=== PATIENT | female | born 1960 | race African-American/Black ===

== ENCOUNTER 2016-11-26 02:19 | Emergency (ER) | payer OTHER ==
[~2016-11-26] VITALS: Ht 165.1 cm; Wt 59.0 kg
[2016-11-26 02:34] VITALS: BP 131/64
--- NOTE | 2016-11-26 02:45 | CT SCAN REPORT ---
EXAMINATION: CT HEAD WITHOUT CONTRAST CLINICAL INFORMATION: Question stroke. Pressure behind the right eye. COMPARISON: None available. TECHNIQUE: Contiguous axial imaging was performed from the skull base to vertex without intravenous administration of contrast. FINDINGS: There is a dense right MCA sign in keeping with intra-arterial thrombus. There is no intracranial hemorrhage, hydrocephalus, extra-axial surface collection, midline shift, or other herniation pattern. Kamara to white matter differentiation is diffusely maintained without evidence of an evolved acute territorial infarct. The basilar cisterns are preserved. No significant soft tissue abnormality. No acute osseous abnormality. The paranasal sinuses and the mastoid air cells are well-aerated. IMPRESSION: There is a dense right MCA sign in keeping with the presence of right MCA intra-arterial thrombus. No acute infarct is identified at this time. No hemorrhage. Stroke protocol was discussed with Dr. Adams at 2:39 AM on November 26, 2016.
[2016-11-26 02:47] LABS: ABSOLUTE BASOPHIL COUNT 0 /CUMM (0.0-0.2); ABSOLUTE EOSINOPHIL COUNT 0.2 /CUMM (0.0-0.7); ABSOLUTE GRANULOCYTE CT 2.3 /CUMM (1.4-6.5); ABSOLUTE LYMPH COUNT 2.7 /CUMM (1.2-3.4); ABSOLUTE MONOCYTE COUNT 0.8 /CUMM (0.10-0.60); BASOPHIL % 0 % (0.0-2.0); EOSINOPHIL % 3.8 % (0-5); GRANULOCYTE % 38.7 % (42.2-75.2); HEMATOCRIT 38.5 % (37-47); MEAN CORPUSCULAR HGB CONC 32.6 G/DL (33.0-37.0); MEAN CORPUSCULAR VOLUME 88.8 FL (81.0-99.0); MEAN PLATELET VOLUME 7.9 FL (7.4-10.4); PLATELET COUNT 244 /CUMM (130-400); RED BLOOD CELL CT 4.33 /CUMM (4.20-5.40); WHITE BLOOD CELL COUNT 6.1 /CUMM (4.8-10.8)
[2016-11-26 02:55] LABS: PTT 29 SEC (25-37)
--- NOTE | 2016-11-26 02:55 | ED NEURO DEFICIT/STROKE ---
History of Present Illness General Chief Complaint: Neuro Symptoms/ Deficit Stated Complaint: BIBA STROKE Source: patient, EMS Exam Limitations: confusion, poor historian Vital Signs & Intake/Output Vital Signs & Intake/Output Vital Signs Date Time Temp Pulse Resp B/P B/P Pulse O2 O2 Flow FiO2 Mean Ox Delivery Rate 11/26 234 98 Nasal 2.0L Cannula 11/26 233 97.5 56 18 131/64 99 Room Air Triage Note: 56yo FEMALE TO RM 11 VIA AMB FROM HOME W/SUDDEN ONSET OF L SIDED WEAKNESS TONITE. CO PRESSURE BEHIND HER EYES. Triage Nurses Notes Reviewed? yes HPI: This is a 56-year-old female with unknown past medical history who comes in for a chief complaint of left-sided weakness. Per EMS, daughter and patient were watching movie and daughter went upstairs for a brief period. About 10 minutes later, when she came back down, she found her mother slumped over and unable to move her left side. Ambulance was called. Per daughter pt occasionally takes ASA; no other anticoagulants. CT shows There is a dense right MCA sign in keeping with the presence of right MCA intra-arterial thrombus. No acute infarct is identified at this time. No hemorrhage. BP 131/64. Pt is within window of TPA as it has been less than one hour since symptom onset. (MARIE MEJIA MD) Allergies Coded Allergies: No Known Allergies (11/26/16) (KENNY JUSTIN,FLORENCIO Narayan) Past History Travel History Traveled to [place] past 21 day No Medical History Any Pertinent Medical History? none Cardiovascular: angina Surgical History Surgical History: unobtainable Family History Hx Contributory? No (MARIE MEJIA MD) Psychosocial History Tobacco Use: Never used ETOH Use: occasional use Illicit Drug Use: denies illicit drug use (FLORENCIO COX MD) Review of Systems Review of Systems Constitutional: Reports: weakness. Denies: chills, fever. EENTM: Denies: blurred vision, double vision, visual changes. Respiratory: Reports: no symptoms. Cardiovascular: Reports: no symptoms. GI: Reports: no symptoms. Genitourinary: Reports: no symptoms. Musculoskeletal: Reports: muscle stiffness. Skin: Reports: no symptoms. Neurological/Psychological: Reports: confusion, headache, unable to move lower ext, unable to move upper ext , weakness. (MARIE MEJIA MD) Review of Systems Hematologic/Endocrine: Reports: no symptoms. Immunologic/Allergic: Reports: no symptoms. All Other Systems: Reviewed and Negative (KENNY JUSTIN,FLORENCIO Narayan) Physical Exam Physical Exam General Appearance: well developed/nourished, no apparent distress Head: atraumatic, normal appearance Eyes: Bilateral: normal appearance, PERRL, EOMI. Ears, Nose, Throat: normal ENT inspection, moist mucous membrane Neck: normal inspection, supple, full range of motion, trachea midline Respiratory: normal breath sounds, chest non-tender, no respiratory distress Cardiovascular: regular rate/rhythm Gastrointestinal: normal bowel sounds, soft, non-tender Back: normal inspection, normal range of motion Extremities: normal range of motion Psychiatric: awake, alert, oriented x 3 Cranial Nerves: normal hearing, PERRL, abnormal speech, facial asymmetry, facial droop, facial weakness, tongue deviation to L, speech slurred Motor/Sensory: weak motor strength LUE, weak motor strength LLE Comments: NIH score 7 Core Measures CVA/TIA Diagnosis: Yes NIH Stroke Scale: Total 6 Severe Sepsis Present: No Septic Shock Present: No Bedside Dysphagia Screen Bedside Swallow Eval Done: No (MARIE MEJIA MD) Physical Exam Back: normal inspection, normal range of motion Extremities: normal range of motion Psychiatric: awake, alert, oriented x 3 Core Measures NIH Stroke Scale: Total 6 Date Last Known Well: 11/26/16 Time Last Known Well: 0200 Neurological S/S of CVA: Left Hemiparesis Symptom Start Date: 11/26/16 Symptom Start Time: 0200 Bedside Dysphagia Screen Bedside Swallow Eval Done: No (KENNY JUSTIN,FLORENCIO Narayan) Progress Differential Diagnosis: Thompson's Palsy, encephalitis, intracranial mass/tumor, meningitis, migraine HOFFMAN, stroke, subarachnoid Hem., vertebrobasilar insuff. Diagnostic Imaging: Viewed by Me: CT Scan. Radiology Impression: Right dense MCA sign Pre-Hospital EKG: NSR, no ST T wave changes Initial ED EKG: NSR, no ST T wave changes Rhythm Strip: normal sinus rhythm Comments: Pt with acute MCA sign. Within window of TPA. Will transfer to [place] and administer TPA. (MARIE MEJIA MD) Plan of Care: Orders Procedure Date/time Status Telemetry/Clip Riveter 11/26 234 Active TROPONIN LEVEL 11/26 234 Complete PARTIAL THROMBOPLASTIN TIME 11/26 234 Complete PROTHROMBIN TIME 11/26 234 Complete COMPREHENSIVE METABOLIC PANEL 11/26 234 Complete CBC WITHOUT DIFFERENTIAL 11/26 234 Complete EKG 11/26 234 Active Laboratory Tests 11/26/16 0232: Anion Gap 7, Estimated GFR > 60, BUN/Creatinine Ratio 14.3, Glucose 127 H, Calcium 10.5 H, Total Bilirubin 0.3, AST 23, ALT 33, Alkaline Phosphatase 81, Troponin I < 0.01, Total Protein 6.7, Albumin 4.0, Globulin 2.7, Albumin/ Globulin Ratio 1.5, PT 10.0, INR 0.95, APTT 29, CBC w Diff MAN DIFF ORDERED, RBC 4.33, MCV 88.8, MCH 29.0, RDW 16.0 H, MPV 7.9, Gran % 38.7 L, Lymphocytes % 43.9, Monocytes % 13.6 H, Eosinophils % 3.8, Basophils % 0 L, Absolute Granulocytes 2.3, Segmented Neutrophils 46, Band Neutrophils 1, Absolute Lymphocytes 2.7, Lymphocytes 40, Monocytes 6, Absolute Monocytes 0.8 H, Eosinophils 7 H, Absolute Eosinophils 0.2, Absolute Basophils 0, Platelet Estimate ADEQUATE, Normocytic RBCs VERIFIED, Normochromic RBCs VERIFIED, PUBS MCHC 32.6 L Pre-Hospital EKG: NSR, no ST T wave changes Initial ED EKG: NSR, no ST T wave changes Rhythm Strip: normal sinus rhythm (KENNY JUSTIN,FLORENCIO Narayan) Departure Departure Disposition: OTHER [facility] (ACUTE) Condition: Stable Clinical Impression Primary Impression: Stroke Qualifiers: CVA mechanism: occlusion Precerebral and cerebral artery: middle cerebral artery Laterality of affected vessel: right Qualified Code: I63.511 - Cerebral infarction due to unspecified occlusion or stenosis of right middle cerebral artery Referrals: UNKNOWN (PCP/Family) Departure Forms: Customer Survey General Discharge Information (JACKIE JUSTIN,MARIE) Resident Co-Sign Statement Statement: ED Attending supervision documentation- [X] I saw and evaluated the patient. I have also reviewed all the pertinent lab results and diagnostic results. I agree with the findings and the plan of care as documented in the Resident's documentation. [X] I have reviewed the ED Record and agree with the Resident's documentation. [] Additions or exceptions (if any) to the Resident's note and plan are summarized below: [I have personally seen and examined this patient. I have read the above note and agree with what has been written. Sudden onset of left-sided deficits. NIH of 7. No medical problems, only takes an occasional aspirin. Dense right MCA on CT. Discussed with neurology. Consent by patient and family for TPA. Patient to be transferred to [place] for neuro and IR treatment.] (KENNY JUSTIN,FLORENCIO Narayan) Critical Care Note Critical Care Note Critical Care Time: mins: (30 MIN) (KENNY JUSTIN,FLORENCIO Narayan)
--- NOTE | 2016-11-26 03:07 | RADIOLOGY REPORT ---
EXAMINATION: XR PORTABLE CHEST CLINICAL INFORMATION: CVA. COMPARISON: None available. TECHNIQUE: Portable frontal view of the chest was obtained. FINDINGS: Symmetric lung inflation. There is no focal consolidation, pleural effusion, or pneumothorax. Cardiac silhouette size is normal. No acute osseous findings. IMPRESSION: No acute pulmonary process.
== END 2016-11-26 03:22 | disposition short-term general hospital (02) ==
LOC: ERH 02:19
PROVIDERS: Emergency Medicine
DX: I63.9 Cerebral infarction, unspecified (principal)
CPT/HCPCS: 93005; 93010; 96374; 99291